=== PATIENT | male | born 1950 | race Caucasian/White ===

== ENCOUNTER 2020-11-06 17:31 | Inpatient (IN) | payer OTHER, MEDICARE ==
[~2020-11-06] VITALS: Ht 177.8 cm; Wt 108.8 kg
[2020-11-06 17:54] LABS: BASOPHILS ABSOLUTE AUTO 0.04 K/mm3 (0.00-0.23); BASOPHILS PERCENT AUTO 0 % (0-2); EOSINOPHILS ABSOLUTE AUTO 0.06 K/mm3 (0.00-0.68); EOSINOPHILS PERCENT AUTO 1 % (0-6); Hematocrit 41.4 % (37.0-53.0); Hemoglobin 14.3 g/dL (13.5-17.5); IMMATURE GRAN ABSOLUTE AUTO 0.03 K/mm3 (0.00-0.10); IMMATURE GRAN PERCENT AUTO 0 % (0-1); LYMPHOCYTES ABSOLUTE AUTO 2.52 K/mm3 (0.84-5.20); LYMPHOCYTES PERCENT AUTO 21 % (21-46); MONOCYTES ABSOLUTE AUTO 0.96 K/mm3 (0.16-1.47); MONOCYTES PERCENT AUTO 8 % (4-13); Mean Corpuscular HGB 32.1 pg (26.0-34.0); Mean Corpuscular HGB Conc 34.5 g/dL (31.5-36.5); Mean Corpuscular Volume 93 fL (80-100); Mean Platelet Volume 10.1 fL (9.1-12.4); NEUTROPHILS ABSOLUTE AUTO 8.47 K/mm3 (1.96-9.15); NEUTROPHILS PERCENT AUTO 70 % (41-73); Platelet Count 243 K/mm3 (150-400); RDW Coefficient Variation 13.4 % (11.7-14.2); RDW Standard Deviation 45.3 fL (35.1-46.3); Red Blood Cell Count 4.45 M/mm3 (4.30-5.90); White Blood Cell Count 12.08 K/mm3 (4.00-11.30)
[2020-11-06] MEDS ORDERED: AMLO5 PO (17:55)
[2020-11-06] MEDS ORDERED: AMOCLA500 PO (17:56)
[2020-11-06] MEDS ORDERED: CLOBETTC TOP (17:56)
[2020-11-06] MEDS ORDERED: CAPSAICIN HOT1 EACH TOP (17:57)
[2020-11-06] MEDS ORDERED: CARBOXYMETHYLCE15 ML BOTHEYES (17:58)
[2020-11-06] MEDS ORDERED: TIMDOROPSO BOTHEYES (18:05)
[2020-11-06] MEDS ORDERED: DOCU100 PO (18:05)
[2020-11-06] MEDS ORDERED: FINA5 PO (18:06)
[2020-11-06] MEDS ORDERED: KETO15TC TOP (18:06)
[2020-11-06] MEDS ORDERED: LORA10ER PO (18:07)
[2020-11-06] MEDS ORDERED: LOSA50 PO (18:07)
[2020-11-06] MEDS ORDERED: SENN187 PO (18:08)
[2020-11-06] MEDS ORDERED: PRAV20 PO (18:08)
[2020-11-06] MEDS ORDERED: MIRALAX17 GM PO (18:08)
[2020-11-06] MEDS ORDERED: TAMS.4ER PO (18:09)
[2020-11-06] MEDS ORDERED: TERA5 PO (18:09)
[2020-11-06 18:12] LABS: Albumin, Blood 3.5 g/dL (3.4-5.0); Albumin/Globulin Ratio 0.9 (0.8-1.8); Bun/Creatinine Ratio 9.2 (12.0-20.0); Calcium, Blood 9.9 mg/dL (8.5-10.1); Creatinine, Blood 1.73 mg/dL (0.60-1.20); Potassium, Blood 3.6 mmol/L (3.5-5.5); Total Protein, Blood 7.5 g/dL (6.4-8.2)
[2020-11-06 18:15] LABS: Troponin I 6.49 ng/mL (0.000-0.040)
[2020-11-06] MEDS ORDERED: THERA-D2000 UNIT PO (18:30)
[2020-11-06] MEDS ORDERED: ASPI325EC PO (18:33)
[2020-11-06 19:18] LABS: CHOL/HDL RATIO 4.1; Cholesterol 211 mg/dL (50-200); HDL Cholesterol 52 mg/dL (>39); LDL/HDL RATIO 2.5; Low Density Lipoprotein Chol 130 mg/dL (0-110); Triglycerides 143 mg/dL (30-160); Very Low Density Lipoprot Chol 28 mg/dL (6-32)
[2020-11-06 19:53] LABS: International Normalized Ratio 0.94; Prothrombin Time Results 10.2 Sec (9.7-11.5)
--- NOTE | 2020-11-06 20:30 | NUR ---
ASSUMPTION OF CARE REPORT RECEIVED FROM DUNCAN XAVIER. PT ARRIVED TO ICU 16 VIA ED [facility], TRANSFERRED SELF ONTO BED. HEPARIN INFUSING AT 13 UNITS/KG/HR. SBP 170'S UPON ARRIVAL TO UNIT, SPO2 99% ON RA, HR 80'S. PT ALERT AND ORIENTED, CONCERNED ABOUT DUE TO HER PHONE NOT WORKING AND NOT KNOWING WHERE HE IS OR WHAT'S GOING ON. PT WAS ABLE TO REACH HIS SISTER WHO WAS ATTEMPTING TO FIND A WAY TO CONTACT PT'S . COMPLAINTS OF 2/10 CHEST PAIN, UNCHANGED SINCE ARRIVAL TO ED.
--- NOTE | 2020-11-07 01:23 | NUR ---
UPDATE DR. ALFONSO NOTIFIED REGARDING CRITICAL TROPONIN OF 18.6. NO NEW ORDERS AT THIS TIME. EKG DONE, SHOWING SR. NITRO GIVEN. HEPARIN GTT INFUSING.
[2020-11-07 02:17] LABS: BASOPHILS ABSOLUTE AUTO 0.03 K/mm3 (0.00-0.23); BASOPHILS PERCENT AUTO 0 % (0-2); EOSINOPHILS ABSOLUTE AUTO 0.09 K/mm3 (0.00-0.68); EOSINOPHILS PERCENT AUTO 1 % (0-6); Hematocrit 39.8 % (37.0-53.0); Hemoglobin 13.9 g/dL (13.5-17.5); IMMATURE GRAN ABSOLUTE AUTO 0.03 K/mm3 (0.00-0.10); IMMATURE GRAN PERCENT AUTO 0 % (0-1); LYMPHOCYTES ABSOLUTE AUTO 2.88 K/mm3 (0.84-5.20); LYMPHOCYTES PERCENT AUTO 24 % (21-46); MONOCYTES ABSOLUTE AUTO 1.09 K/mm3 (0.16-1.47); MONOCYTES PERCENT AUTO 9 % (4-13); Mean Corpuscular HGB 32.3 pg (26.0-34.0); Mean Corpuscular HGB Conc 34.9 g/dL (31.5-36.5); Mean Corpuscular Volume 93 fL (80-100); Mean Platelet Volume 9.8 fL (9.1-12.4); NEUTROPHILS ABSOLUTE AUTO 8.03 K/mm3 (1.96-9.15); NEUTROPHILS PERCENT AUTO 66 % (41-73); Platelet Count 224 K/mm3 (150-400); RDW Coefficient Variation 13.3 % (11.7-14.2); RDW Standard Deviation 45.1 fL (35.1-46.3); White Blood Cell Count 12.15 K/mm3 (4.00-11.30)
[2020-11-07 02:31] LABS: Calcium, Blood 9.1 mg/dL (8.5-10.1); Creatinine, Blood 1.5 mg/dL (0.60-1.20); Potassium, Blood 3.5 mmol/L (3.5-5.5)
--- NOTE | 2020-11-07 06:26 | NUR ---
SHIFT ASSESSMENT PT ANXIOUS AND RESTLESS DURING SHIFT. COMPLAINING OF 2-3/10 CHEST PAIN, NITRO GIVEN X 3. EKG DONE, SHOWING NORMAL SINUS. DR. JACOBO NOTIFIED, ONE TIME ORDER FOR PO ATIVAN GIVEN FOR ANXIETY. PRN HYDRALAZINE GIVEN FOR SBP >160. PT NPO AT MIDNIGHT. HEPARIN INCREASED THIS SHIFT TO 15 UNITS/KG/HR. WILL CONTINUE TO MONITOR UNTIL HANDOFF TO ONCOMING RN.
--- NOTE | 2020-11-07 07:25 | NUR ---
UPDATE DR. ALFONSO NOTIFIED OF CRITICAL TROPONIN OF 22.70. NO NEW ORDERS PLACED AT THIS TIME. CARDIOLOGY CONSULT ORDERED FOR THIS AM.
--- NOTE | 2020-11-07 08:00 | NUR ---
INITIAL ASSESSMENT PATIENT ALERT AND ORIENTED X 4, AFEBRILE. PATIENT DOES GO OFF ON TANGENTS AT TIMES. CIWA SCORE OF 3. PATIENT WEAK. USES CANE AT HOME AT BASELINE. PATIENT REPORTS 2/10 R CHEST PAIN. PATIENT ALSO COMPLAINS OF HEADACHE AND THAT TEETH HURT WHEN HE BREATHS IN AND OUT. PATIENT GIVEN PRN PAIN MEDICATION. PATIENT SATTING 90% AND GREATER ON RA. PATIENT HAS IMELDA BUT DOES NOT WEAR MASK AT HOME. LUNGS CLEAR IN UPPER LOBES AND DIMINISHED IN LOWER LOBES. PATIENT DENIES COUGH. PATIENT STATES NOSE IS PLUGGED AND THAT HIS NOSE IS PLUGGED ALL THE TIME AT HOME AND HE USES NASAL SPRAY CONSTANTLY AT HOME TO HELP IT. PATIENT IN SR, HR 60S TO 70S. SBP 140S TO 160S. GI WNL. PATIENT HAS URGENCY AND DIFFICULTY STARTING WITH URINATION. PATIENT HAS CURRENT BLADDER CANCER. PATIENT USING URINAL INDEPENDENTLY WHILE SITTING AT SIDE OF BED. SKIN APPEARS WNL. HEPARIN DRIP INFUSING AT 15 UNITS/ KG/ HOUR. BED LOW, CALL LIGHT IN REACH. WILL CONTINUE TO MONITOR PATIENT FREQUENTLY THROUGHOUT SHIFT.
--- NOTE | 2020-11-07 08:01 | NUR ---
DR. LIEBERMAN CALLED TO CHECK UP ON PATIENT. INFORMED THAT TROPONIN INCREASED TO 22.7. THAT PATIENT IS CONTINUING TO HAVE CHEST PAIN. THAT NO ECHO ORDERED. ORDER FOR ECHO RECEIVED. STATED HE WILL TAKE TO [facility] AFTER ECHO.
[2020-11-07 09:38] LABS: SARS-Cov-2 (COVID-19) PCR, MMC NEGATIVE (NEGATIVE)
--- NOTE | 2020-11-07 14:20 | NUR ---
PATIENT BACK FROM [employer]. 5 STENTS PLACED TO RCA. TR BAND TO R ULNAR- 11 CC AIR INSTILLED. AT BEDSIDE VISITING. PATIENT GROGGY. BED ALARM ON.
--- NOTE | 2020-11-07 15:57 | NUR ---
SHIFT SUMMARY PATIENT REMAINED ALERT AND ORIENTED. PATIENT SLIGHTLY GROGGY AFTER MECHANIC GENERAL OPERATIONAL TEST PROCEDURE. PATIENT REMAINED AFEBRILE. PATIENT GIVEN PRN TYLENOL OT. NO FURTHER COMPLAINTS OF PAIN. CIWA SCORE REMAINED AT 3. PATIENT WEAK. 1 PERSON ASSIST PRE MECHANIC GENERAL OPERATIONAL TEST. PATIENT HAS REMAINED SATTING 90% AND GREATER ON RA. PATIENT CONTINUALLY ASKING FOR SALINE FOR PLUGGED NOSE PRE MECHANIC GENERAL OPERATIONAL TEST. PATIENT HAS REMAINED SR, HR 60S TO 70S. SBP 1-TEENS TO 160S. GI WNL. NO BM THIS SHIFT. PATIENT NO LONGER NPO; ON CARDIAC DIET. PATIENT USING URINAL WITH ASSISTANCE. PATIENT CONTINUES TO HAVE URGENCY AND DIFFICULTY STARTING FROM BLADDER CANCER. TR BAND TO R ULNAR ARTERY. 11 CC AIR INSTILLED. ARM BOARD IN PLACE. HEPARIN INFUSING PRE MECHANIC GENERAL OPERATIONAL TEST. HEPARIN DC'D IN MECHANIC GENERAL OPERATIONAL TEST. ECHO PERFROMED THIS SHIFT. PATIENT RECEIVED 5 STENTS TO RCA IN MECHANIC GENERAL OPERATIONAL TEST. CAME TO VISIT. PATIENT WILL BE TRANSFERRING TO PCU 04 SHORTLY.
--- NOTE | 2020-11-07 16:04 | NUR ---
Telephone report received from Yvonne Hopkins Pt will be arriving to PCU 4 shortly.
--- NOTE | 2020-11-07 16:18 | NUR ---
PATIENT SUCCESSFULLY TRANSFERRED TO PCU O4. PATIENT BELONGINGS SENT WITH PATIENT.
--- NOTE | 2020-11-07 16:28 | NUR ---
Received pt from icu to PCU 4. Pt is too drowsy to stand and transfer, so slip over using slider sheet from one bed to the other. he awakens a little bit, but seems quite drowsy and is slurring his speech a little bit. at bedside, answering questions and talking with the pt. TR band was deflated by 2 cc at this time, site WNL. Vital signs noted stable.
--- NOTE | 2020-11-07 17:20 | NUR ---
TR BAND NOW FULLY DEFLATED. RIGHT WRIST WITHOUT SWELLING, HEMATOMA, BRUISING NOR BLEEDING. PT DENIES PAIN. HE IS STILL DROWSY. WHITE IMMOBILIZER BOARD PLACED ON ARM. IS AT THE BEDSIDE. PT STATES REGULAR FOOD HE CANNOT EAT BECAUSE OF POOR DENTITION. SOFT DIET ORDERED AT THIS TIME.
--- NOTE | 2020-11-07 20:01 | NUR ---
TR BAND OFF AT 1950. NO BLEEDING, HEMATOMA, SOFT. PULSES PALPABLE. OPSITE DRESSING PLACED C/D/I. ARM BOARD IN PLACE.
[2020-11-08 04:19] LABS: BASOPHILS ABSOLUTE AUTO 0.03 K/mm3 (0.00-0.23); BASOPHILS PERCENT AUTO 0 % (0-2); EOSINOPHILS ABSOLUTE AUTO 0.03 K/mm3 (0.00-0.68); EOSINOPHILS PERCENT AUTO 0 % (0-6); Hematocrit 39.7 % (37.0-53.0); Hemoglobin 13.7 g/dL (13.5-17.5); IMMATURE GRAN ABSOLUTE AUTO 0.04 K/mm3 (0.00-0.10); IMMATURE GRAN PERCENT AUTO 0 % (0-1); LYMPHOCYTES ABSOLUTE AUTO 2.16 K/mm3 (0.84-5.20); LYMPHOCYTES PERCENT AUTO 16 % (21-46); MONOCYTES ABSOLUTE AUTO 1.14 K/mm3 (0.16-1.47); MONOCYTES PERCENT AUTO 9 % (4-13); Mean Corpuscular HGB 31.9 pg (26.0-34.0); Mean Corpuscular HGB Conc 34.5 g/dL (31.5-36.5); Mean Corpuscular Volume 93 fL (80-100); Mean Platelet Volume 10.1 fL (9.1-12.4); NEUTROPHILS ABSOLUTE AUTO 10.09 K/mm3 (1.96-9.15); NEUTROPHILS PERCENT AUTO 75 % (41-73); Platelet Count 221 K/mm3 (150-400); RDW Coefficient Variation 13.4 % (11.7-14.2); RDW Standard Deviation 45.7 fL (35.1-46.3); Red Blood Cell Count 4.29 M/mm3 (4.30-5.90); White Blood Cell Count 13.49 K/mm3 (4.00-11.30)
[2020-11-08 04:47] LABS: Albumin, Blood 3.2 g/dL (3.4-5.0); Anion Gap 7 mmol/L (6-16); Blood Urea Nitrogen 18 mg/dL (8-24); Bun/Creatinine Ratio 12.3 (12.0-20.0); CO2, Blood 25 mmol/L (21-32); Calcium, Blood 9.1 mg/dL (8.5-10.1); Chloride, Blood 106 mmol/L (98-108); Creatinine, Blood 1.46 mg/dL (0.60-1.20); Glomerular Filtration Rate 51 (60-); Glucose, Blood 136 mg/dL (70-99); Phosphorus, Blood 2.9 mg/dL (2.5-4.9); Potassium, Blood 3.3 mmol/L (3.5-5.5); Sodium, Blood 138 mmol/L (136-145)
--- NOTE | 2020-11-08 05:47 | NUR ---
SHIFT SUMMARY PT A&OX3. SP02>90% ON RA. TELEMETRY READS SR, HR 60'S. PT HAS R ULNER SITE, C/D/I, NO BLEEDING, BRUISING, HEMATOMA. PT WORE ARM BOARD T/O SHIFT. PT DENIES PAIN. CIWAS RANGED 2-3 DURING NIGHT, SLIGHT TREMORS IN HANDS/ARMS AND SLIGHT SWEATING. PT ATTEMPTED TO STAND TO USE URINAL AT BEGINNING OF SHIFT AND WAS UNSTEADY ON FEET. HELPED BACK ONTO BED, USED URINAL SITTING ON EDGE OF BED THE REST OF SHIFT. BED ALARM ON. PT SLEPT T/O NIGHT. CALL LIGHT IN [facility]. WILL GIVE REPORT TO ONCOMING NURSE.
[2020-11-08] MEDS ORDERED: METO25 PO (16:00)
[2020-11-08] MEDS ORDERED: NITR.4SL SL (16:01)
[2020-11-08] MEDS ORDERED: TICA90TA PO (16:01)
--- NOTE | 2020-11-08 16:30 | NUR ---
REVIEWED DISCHARGE PACKET WITH PT AND HIS AT BEDSIDE. RADIAL ARTERIAL ACESS SITE PRECAUTIONS REVIEWED. MEDICATION LIST, NEW MEDICATIONS, EDUCATION AND FOLLOW UP APPOINTMENT INFORMATION REVIEWED AND PT AND HIS VERBALIZE UNDERSTANDING AND STATE THEY HAVE NO QUESTIONS OR CONCERNS AT THIS TIME. IV REMOVED BY PRIMARY RN ABIEL. ALL BELONGINGS SENT WITH PT. NO FURTHER DISCHARGE NEEDS IDENTIFIED.
== END 2020-11-08 16:31 | disposition home or self-care (01) | DRG 246 ==
LOC: ER 17:31 → ICUW 18:35 → PCU 11-07 16:13
PROVIDERS: Emergency Medicine; Internal Medicine Cardiovascular Disease; ADMIT Family Medicine
PROC: 027137Z Dilation of Coronary Artery, Two Arteries with Four or More Drug-eluting Intraluminal Devices, Percutaneous Approach (ICD-10-PCS; principal; 2020-11-07)
PROC: 4A023N7 Measurement of Cardiac Sampling and Pressure, Left Heart, Percutaneous Approach (ICD-10-PCS; 2020-11-07)
PROC: B2111ZZ Fluoroscopy of Multiple Coronary Arteries using Low Osmolar Contrast (ICD-10-PCS; 2020-11-07)
DX: I21.4 Non-ST elevation (NSTEMI) myocardial infarction (principal); N17.9 Acute kidney failure, unspecified; T82.855A Stenosis of coronary artery stent, initial encounter; Z20.822 Contact with and (suspected) exposure to COVID-19; I12.9 Hypertensive chronic kidney disease with stage 1 through stage 4 chronic kidney disease, or unspecified chronic kidney disease; I25.10 Atherosclerotic heart disease of native coronary artery without angina pectoris; F12.90 Cannabis use, unspecified, uncomplicated; M10.9 Gout, unspecified; R73.9 Hyperglycemia, unspecified; K59.09 Other constipation; H40.9 Unspecified glaucoma; F10.20 Alcohol dependence, uncomplicated; N40.0 Benign prostatic hyperplasia without lower urinary tract symptoms; F32.9 Major depressive disorder, single episode, unspecified; E66.01 Morbid (severe) obesity due to excess calories; D72.829 Elevated white blood cell count, unspecified; N18.30 Chronic kidney disease, stage 3 unspecified; L21.9 Seborrheic dermatitis, unspecified; G47.33 Obstructive sleep apnea (adult) (pediatric); Z95.5 Presence of coronary angioplasty implant and graft; Z85.51 Personal history of malignant neoplasm of bladder; Z98.890 Other specified postprocedural states; Z99.89 Dependence on other enabling machines and devices; Z88.8 Allergy status to other drugs, medicaments and biological substances; Z79.2 Long term (current) use of antibiotics; Z79.899 Other long term (current) drug therapy; Z87.891 Personal history of nicotine dependence; Z68.34 Body mass index [BMI] 34.0-34.9, adult
CPT/HCPCS: 36415; 71046; 76937; 80048; 80053; 80061; 80069; 84484; 85025; 85347; 85610; 85730; 93005; 93010; 93306; 93454; 96365; 99152; 99153; 99285-25; A9270; C1725; C1769; C1874; C1887; C1894; C9600; C9601; J0360; J1644; J2060; J2250; J3010; J7030; J7040; J7050; Q9967; U0004

== ENCOUNTER 2023-05-20 12:32 | Emergency (ER) | payer OTHER ==
[~2023-05-20] VITALS: Ht 177.8 cm; Wt 111.1 kg
[~2023-05-20 12:32] MED LIST: AMLO5 PO; AMOCLA500 PO; ASPI325EC PO; CAPSAICIN HOT1 EACH TOP; CARBOXYMETHYLCE15 ML BOTHEYES; CLOBETTC TOP; DOCU100 PO; FINA5 PO; KETO15TC TOP; LORA10ER PO; LOSA50 PO; METO25 PO; MIRALAX17 GM PO; NITR.4SL SL; PRAV20 PO; SENN187 PO; TAMS.4ER PO; TERA5 PO; THERA-D2000 UNIT PO; TICA90TA PO; TIMDOROPSO BOTHEYES
[2023-05-20 15:17] VITALS: BP 111/56
[2023-05-20] MEDS ORDERED: BACTRIM DS TAB1 EAC1 PO (16:49)
[2023-05-20] MEDS ORDERED: CEPH500 PO (16:49)
== END 2023-05-20 17:54 | disposition home or self-care (01) ==
LOC: ER 12:32
DX: M79.672 Pain in left foot (principal); I10 Essential (primary) hypertension; Z79.82 Long term (current) use of aspirin; Z79.899 Other long term (current) drug therapy; Z88.8 Allergy status to other drugs, medicaments and biological substances
CPT/HCPCS: 73630; 93971; 96372; 99284-25; A9270; J1885

== ENCOUNTER 2024-12-24 22:52 | Emergency (ER) | payer OTHER ==
[~2024-12-24] VITALS: Ht 175.3 cm; Wt 111.1 kg
[~2024-12-24 22:52] MED LIST changes: +BACTRIM DS TAB1 EAC1 PO; +CEPH500 PO
[2024-12-24 23:41] LABS: BASOPHILS ABSOLUTE AUTO 0.04 K/mm3 (0.00-0.23); BASOPHILS PERCENT AUTO 0 % (0-2); EOSINOPHILS ABSOLUTE AUTO 0.04 K/mm3 (0.00-0.68); EOSINOPHILS PERCENT AUTO 0 % (0-6); Hematocrit 43.6 % (37.0-53.0); Hemoglobin 14.9 g/dL (13.5-17.5); IMMATURE GRAN ABSOLUTE AUTO 0.07 K/mm3 (0.00-0.10); IMMATURE GRAN PERCENT AUTO 0 % (0-1); LYMPHOCYTES ABSOLUTE AUTO 1.83 K/mm3 (0.84-5.20); LYMPHOCYTES PERCENT AUTO 11 % (21-46); MONOCYTES ABSOLUTE AUTO 0.69 K/mm3 (0.16-1.47); MONOCYTES PERCENT AUTO 4 % (4-13); Mean Corpuscular HGB Conc 34.2 g/dL (31.5-36.5); Mean Corpuscular Volume 95 fL (80-100); NEUTROPHILS ABSOLUTE AUTO 13.64 K/mm3 (1.96-9.15); NEUTROPHILS PERCENT AUTO 84 % (41-73); NRBC ABSOLUTE 0.00 K/mm3 (0.00-0.02); NRBC Auto 0.0 /100 WBC (0.0-0.2); Platelet Count 212 K/mm3 (150-400); RDW Coefficient Variation 14.4 % (11.7-14.2); RDW Standard Deviation 49.7 fL (35.1-46.3)
[2024-12-25 00:02] LABS: Alanine Aminotransfer (ALT/SGP 44.0 U/L (12-78); Albumin, Blood 3.6 g/dL (3.4-5.0); Albumin/Globulin Ratio 0.9 (0.8-1.8); Anion Gap 8.0 mmol/L (3-11); Aspartate Aminotrans (AST/SGOT 24.0 U/L (12-37); Bilirubin, Total 0.9 mg/dL (0.1-1.0); Blood Urea Nitrogen 12.0 mg/dL (8-24); CO2, Blood 29.0 mmol/L (21-32); Calcium, Blood 9.3 mg/dL (8.5-10.1); Chloride, Blood 103.0 mmol/L (98-108); Creatinine, Blood 1.09 mg/dL (0.60-1.20); Globulin, Blood 3.9 g/dL (2.2-4.0); Glucose, Blood 105.0 mg/dL (70-99); Potassium, Blood 3.9 mmol/L (3.5-5.5); Sodium, Blood 136.0 mmol/L (136-145); Total Protein, Blood 7.5 g/dL (6.4-8.2)
[2024-12-25] MEDS ORDERED: Ondansetron HCl 2 MG / ML 2ML Vial IV ONE (01:25)
[2024-12-25] MEDS ORDERED: FentaNYL Citrate 50 MCG/ML 2 ML Injection IV PRN (01:25)
[2024-12-25] MEDS ORDERED: NS 1,000 ML IV SCH (01:25)
[2024-12-25 02:00] LABS: Source, Urine Clean Catch
[2024-12-25 02:15] LABS: Bilirubin, Urine Neg (Neg); Glucose Qualitative, Urine Neg (Neg); Ketones, Urine Neg (Neg); Leukocyte Esterase, Urine 1+ (Neg); Protein, Urine Neg (Neg); Specific Gravity, Urine 1.010 (1.003-1.022); Urobilinogen, Urine NORM (Normal)
[2024-12-25 02:17] LABS: Color, Urine Yellow (P-Yellow)
[2024-12-25 02:21] LABS: Red Blood Cells, Urine 0-2 /hpf (0-2)
[2024-12-25] MEDS ORDERED: CEFP200 PO ×2 (05:13→12:19)
[2024-12-25] MEDS ORDERED: CefTRIAXone Sodium 1,000 MG in NS 50 ML IV ONE (05:15)
[2024-12-25 05:30] VITALS: BP 142/68
== END 2024-12-25 05:46 | disposition home or self-care (01) ==
LOC: ER 22:52
PROVIDERS: Emergency Medicine
DX: N39.0 Urinary tract infection, site not specified (principal); E86.0 Dehydration; N20.0 Calculus of kidney; I12.9 Hypertensive chronic kidney disease with stage 1 through stage 4 chronic kidney disease, or unspecified chronic kidney disease; N18.30 Chronic kidney disease, stage 3 unspecified; I25.10 Atherosclerotic heart disease of native coronary artery without angina pectoris; I25.2 Old myocardial infarction; G47.33 Obstructive sleep apnea (adult) (pediatric); Z88.8 Allergy status to other drugs, medicaments and biological substances; Z79.82 Long term (current) use of aspirin; Z79.899 Other long term (current) drug therapy
CPT/HCPCS: 51798; 71046; 74177; 80053; 81001; 83690; 84484; 85025; 87086; 96361; 96374-59; 96375; 96376; 99284-25; A9270; J0696; J2405; J3010; J7030; Q9967